=== PATIENT | male | born 1945 | race Caucasian/White ===

== ENCOUNTER → 2016-12-28 | Outpatient (CLI) | payer OTHER ==
[~2016-12-28] VITALS: Ht 157.5 cm; Wt 60.8 kg
[~2016-12-28] MED LIST: ACETAMINOPHEN325 M1 PO; ADVAIR HFA120 INHALA IH; ALBUTEROL2.5 MG/3 M IH; ALMACONE LIQUI355 ML PO; ATENOLOL50 M1 PO; ATROVENT 0.06%15 ML NS; ATROVENT 00.5 MG/2.5 IH; ATROVENT H200 INHALA IH; BISACODYL5 MG PO; COLACE100 MG PO; CORRECTOL5 M1 PO; DAILY MULTIPLE1 EACH PO; DEBROX15 ML BOTH EARS; DELTASONE20 M1 PO; DEPAKOTE ER500 MG PO; DOCUSATE SODIU100 M1 PO; DULCOLAX5 MG PO; DYAZIDE, MA1 CAPSULE PO; EAR WAX DROPS15 ML BOTH EARS; ENEMA READY TO135 M1 PR; FIBER-LAX625 M1 PO; FLOMAX0.4 MG PO; FLONASE16 G1 BOTH NARES; FLONASE16 GM NS; FLORA-Q CAPSUL1 EAC1 PO; FLORA-Q CAPSUL1 EACH PO; FLOVENT 11120 INHALA IH; GAS RELIEF 8080 MG PO; GAS RELIEF80 MG PO; IPRATROPIU0.2 MG/1 M IH; ISOPTIN SR240 M1 PO; K-DUR20 MEQ PO; K-Dur PO; KLOR-CON M2020 MEQ PO; LEVOFLOXACIN500 MG PO; LEVOFLOXACIN750 MG PO; LISINOPRIL10 MG PO; Levaquin PO; MIRALAX17 GM PO; MIRALAX255 GM PO; MUCINEX600 MG PO; MULTIVITAMIN1 EAC1 PO; MYLICON,MYLANTA80 MG PO; OYSCO 500+D TA1 EACH PO; OYSTER CALCIUM PO; OYSTER SHELL 51 EACH PO; OYSTERCAL-D 501 EACH PO; PHENERGAN W/COD10 ML PO; PHENERGAN-CODE120 ML PO; PHENOBARBITAL15 MG PO; PHENOBARBITAL16.2 MG PO; PREDNISONE10 MG PO; PREDNISONE20 MG PO; PREDNISONE5 M2 PO; PREDNISONE5 MG PO; PREPARATION H C51 G1 PR; PROAIR HFA8.5 GM IH; PROVENTIL,2.5 MG/3 M IH; RANITIDINE HCL150 MG PO; SILVASORB1.5 OZ TP; SIMETHICONE80 MG PO; TAMSULOSIN HCL0.4 MG PO; TINACTIN15 GM TP; TRIPLE ANTIB28.35 GM TP; TRIPLE ANTIBIO1 EACH TP; TYLENOL REGULA325 MG PO; VENTOLIN HFA18 GM IH; VERAPAMIL HCL240 MG PO; VERELAN 240 MG240 MG PO; ZANTAC150 M1 PO; ZANTAC150 MG PO; [UNRECOGNIZED DRUG - OTHER] MM; predniSONE PO
== END | disposition home or self-care (01) ==
LOC: AMB 09:00
DX: Z12.11 Encounter for screening for malignant neoplasm of colon (principal); D12.2 Benign neoplasm of ascending colon; K57.30 Diverticulosis of large intestine without perforation or abscess without bleeding; I10 Essential (primary) hypertension; F73 Profound intellectual disabilities; J44.9 Chronic obstructive pulmonary disease, unspecified; K21.0 Gastro-esophageal reflux disease with esophagitis; Z86.14 Personal history of Methicillin resistant Staphylococcus aureus infection; Z87.891 Personal history of nicotine dependence; Z79.899 Other long term (current) drug therapy
CPT/HCPCS: 88305; 93005

== ENCOUNTER 2017-02-12 16:33 | Emergency (ER) | payer OTHER ==
[~2017-02-12] VITALS: Ht 167.6 cm; Wt 61.5 kg
[2017-02-12 17:30] LABS: HEMATOCRIT 41.2 % (38.0-50.0); MCHC 32.8 G/DL (30.0-36.0); MCV 94.5 FL (86-99); MEAN PLAT.VOLUME 9.5 uM^3 (9.0-12.4); PLATELET COUNT 249 K/uL (156-360); RBC DIS.WIDTH-CV 15.5 % (11.8-14.6); RBC DIS.WIDTH-SD 54.1 % (39-53); RED BLOOD COUNT 4.36 M/uL (4.00-5.50); WHITE BLOOD COUNT 7.3 K/uL (4.1-10.2)
[2017-02-12 17:33] LABS: CHLORIDE 97 mEq/L (99-109); POTASSIUM 4.5 mEq/L (3.7-5.4); SODIUM 136 mEq/L (136-147)
[2017-02-12 17:35] LABS: GLUCOSE 99 mg/dL (70-99)
[2017-02-12 17:36] LABS: ANION GAP 9 MEQ/L (2-14)
[2017-02-12 17:37] LABS: D-DIMER ELISA 0.94 mg/L FEU (< 0.57)
[2017-02-12 17:39] LABS: GFR ESTIMATE (CALCULATED) > 59 mL/min/
[2017-02-12 17:40] LABS: UREA NITROGEN (BUN) 14 mg/dL (9-23)
[2017-02-12 17:45] LABS: TROP-I INTERPRETATION NEGATIVE; TROPONIN-I < 0.01 ng/mL (0.0-0.30)
[2017-02-12 20:55] VITALS: BP 171/92
== END 2017-02-12 20:57 | disposition home or self-care (01) ==
LOC: EME 16:33
PROVIDERS: Emergency Medicine
DX: R07.89 Other chest pain (principal); J44.9 Chronic obstructive pulmonary disease, unspecified; Z87.891 Personal history of nicotine dependence
CPT/HCPCS: 71010; 71275; 80048; 84484; 85027; 85379; 93005; 99281; 99284

== ENCOUNTER 2017-04-29 13:46 | Inpatient (IN) | payer OTHER ==
[~2017-04-29] VITALS: Ht 165.1 cm; Wt 58.3 kg
[2017-04-29 14:23] LABS: HEMATOCRIT 40.7 % (38.0-50.0); MCH 31.4 PG (29.0-34.0); MCHC 32.7 G/DL (30.0-36.0); MEAN PLAT.VOLUME 9.2 uM^3 (9.0-12.4); PLATELET COUNT 267 K/uL (156-360); RBC DIS.WIDTH-CV 14.8 % (11.8-14.6); RBC DIS.WIDTH-SD 52.3 % (39-53); RED BLOOD COUNT 4.24 M/uL (4.00-5.50); WHITE BLOOD COUNT 8.5 K/uL (4.1-10.2)
[2017-04-29 14:32] LABS: CHLORIDE 95 mEq/L (99-109); SODIUM 137 mEq/L (136-147)
[2017-04-29 14:34] LABS: GLUCOSE 208 mg/dL (70-99)
[2017-04-29 14:35] LABS: ANION GAP 11 MEQ/L (2-14)
[2017-04-29 14:38] LABS: GFR ESTIMATE (CALCULATED) > 59 mL/min/; UREA NITROGEN (BUN) 17 mg/dL (9-23)
[2017-04-29 14:44] LABS: TROP-I INTERPRETATION NEGATIVE; TROPONIN-I < 0.01 ng/mL (0.0-0.30)
[2017-04-30 04:07] LABS: ADD MIUA? YES; BILIRUBIN NEGATIVE; BLOOD NEGATIVE; COLOR YELLOW ((YELLOW)); GLUCOSE (STRIP) NEGATIVE; KETONES 5; LEUKOCYTES NEGATIVE; NITRITE NEGATIVE; PROTEIN (STRIP) NEGATIVE; SPECIFIC GRAVITY 1.043 (1.000-1.030); UROBILINOGEN 0.2 MG/DL (0.2-1.0)
[2017-04-30 04:57] LABS: BACTERIA 1+ /HPF; CRYSTALS PRESENT; EPITHELIAL CELLS NONE SEEN /HPF; MUCUS NONE SEEN /LPF; RED BLOOD CELLS NONE SEEN /HPF (0-5); UCUL ADDED? NO; WHITE BLOOD CELLS NONE SEEN /HPF (0-5)
[2017-04-30 04:58] LABS: AMORPHOUS URATES CRYSTALS 3+
[2017-04-30 07:38] VITALS: BP 142/70
[2017-04-30 11:25] VITALS: BP 139/65
[2017-04-30 15:57] VITALS: BP 124/65
[2017-04-30 20:00] VITALS: BP 149/76
[2017-05-01 00:53] VITALS: BP 146/81
[2017-05-01 07:25] VITALS: BP 153/74
[2017-05-01 07:44] LABS: Estimated Average Glucose 120 mg/dL (70-123); HEMOGLOBIN A1c (GLYCOHEMOGLOB) 5.8 % HGB (Below 5.7)
[2017-05-01 07:49] LABS: POINT-OF-CARE METER ID UU14174225
[2017-05-01 11:09] VITALS: BP 162/79
[2017-05-01 15:23] VITALS: BP 142/796
[2017-05-01 16:00] VITALS: BP 142/79
[2017-05-01 16:31] LABS: POINT-OF-CARE METER ID UU14174225
[2017-05-01 21:10] VITALS: BP 133/43
[2017-05-02 00:42] VITALS: BP 160/71
[2017-05-02 04:13] VITALS: BP 137/65
[2017-05-02 07:21] VITALS: BP 135/81
[2017-05-02 11:09] VITALS: BP 116/56
[2017-05-02 11:25] LABS: POINT-OF-CARE METER ID UU14174225
[2017-05-02] MEDS ORDERED: CEFTIN500 MG PO (12:17)
== END 2017-05-02 14:30 | disposition home or self-care (01) | DRG 190 ==
LOC: EME 13:46 → 5SOUTH 19:21 → EDOF 19:21 → ENRESERV 19:22 → 5SOUTH 22:37
PROVIDERS: Emergency Medicine; Hospitalist
DX: J44.0 Chronic obstructive pulmonary disease with (acute) lower respiratory infection (principal); J96.21 Acute and chronic respiratory failure with hypoxia; I10 Essential (primary) hypertension; N40.0 Benign prostatic hyperplasia without lower urinary tract symptoms; J44.1 Chronic obstructive pulmonary disease with (acute) exacerbation; K21.9 Gastro-esophageal reflux disease without esophagitis; J20.9 Acute bronchitis, unspecified; Z87.891 Personal history of nicotine dependence; Z99.81 Dependence on supplemental oxygen; J84.10 Pulmonary fibrosis, unspecified; F73 Profound intellectual disabilities; H54.0 Blindness, both eyes; R73.9 Hyperglycemia, unspecified
CPT/HCPCS: 71010; 71275; 80048; 81003; 82948; 83036; 84484; 85027; 85379; 87040; 93005; 94640; 94640 76; 94760; 94799; 99202; 99281; 99284; J0696; J1644; J1815; J2920; J2930; J7050

== ENCOUNTER 2017-12-02 23:37 | Inpatient (IN) | payer OTHER ==
[~2017-12-02] VITALS: Ht 175.3 cm; Wt 58.3 kg
[~2017-12-02 23:37] MED LIST changes: +CEFTIN500 MG PO; +CHLORASEPTIC177 ML MM; +LEVAQUIN500 MG PO; +SENNA-DOCUSATE1 EAC1 PO; -[UNRECOGNIZED DRUG - OTHER] MM
[2017-12-03 00:24] LABS: BASOPHIL (%) 0.3 % (0-1); EOSINOPHIL (%) 0.7 % (0-5); EOSINOPHIL COUNT 0.1 K/uL (0-0.3); HEMATOCRIT 38.4 % (38.0-50.0); IMMATURE GRANULOCYTE (%) 0.3 % (0.0-0.7); LYMPHOCYTE (%) 12.5 % (15-42); LYMPHOCYTE COUNT 1.1 K/uL (1.0-2.8); MCH 32.7 PG (29.0-34.0); MCHC 33.9 G/DL (30.0-36.0); MCV 96.7 FL (86-99); MONOCYTE (%) 17.1 % (3-12); MONOCYTE COUNT 1.5 K/uL (0-0.8); NEUTROPHIL (%) 69.1 % (45-76); NEUTROPHIL COUNT 6.2 K/uL (1.8-6.4); PLATELET COUNT 189 K/uL (156-360); RBC DIS.WIDTH-CV 14.6 % (11.8-14.6); RBC DIS.WIDTH-SD 53.1 % (39-53); RED BLOOD COUNT 3.97 M/uL (4.00-5.50)
[2017-12-03 00:26] LABS: APPEARANCE SL.HAZY ((CLEAR)); BILIRUBIN NEGATIVE; BLOOD NEGATIVE; COLOR YELLOW ((YELLOW)); GLUCOSE (STRIP) NEGATIVE; KETONES 20; LEUKOCYTES NEGATIVE; NITRITE NEGATIVE; PROTEIN (STRIP) 30; UROBILINOGEN 0.2 MG/DL (0.2-1.0)
[2017-12-03 00:34] LABS: ALBUMIN 3.8 g/dL (3.2-4.8); BACTERIA NONE SEEN /HPF; CHLORIDE 98 mEq/L (99-109); EPITHELIAL CELLS NONE SEEN /HPF; MUCUS TRACE /LPF; SODIUM 140 mEq/L (136-147); UCUL ADDED? NO; WHITE BLOOD CELLS 0-5 /HPF (0-5)
[2017-12-03 00:36] LABS: GLUCOSE 97 mg/dL (70-99)
[2017-12-03 00:37] LABS: TOTAL PROTEIN 6.3 g/dL (6.4-8.3)
[2017-12-03 00:38] LABS: TOTAL BILIRUBIN 0.6 mg/dL (0.0-1.0)
[2017-12-03 00:40] LABS: ALKALINE PHOSPHATASE 55 IU/L (3-129); CREATININE 0.9 mg/dL (0.6-1.3); GFR ESTIMATE (CALCULATED) > 59 mL/min/ (58.99-99999)
[2017-12-03 00:41] LABS: UREA NITROGEN (BUN) 26 mg/dL (9-23)
[2017-12-03 00:42] LABS: AST (GOT) 16 IU/L (2-34)
[2017-12-03 00:43] LABS: ALT (GPT) 13 IU/L (3-49)
[2017-12-03 00:46] LABS: TROP-I INTERPRETATION NEGATIVE; TROPONIN-I < 0.01 ng/mL (0.0-0.30)
[2017-12-03] MEDS ORDERED: PREDNISONE10 MG PO (01:11)
[2017-12-03] MEDS ORDERED: MIRALAX17 GM PO (01:16)
[2017-12-03] MEDS ORDERED: PROAIR HFA8.5 GM IH (01:17)
[2017-12-03 05:16] VITALS: BP 128/81
[2017-12-03 08:00] VITALS: BP 131/58
[2017-12-03 12:00] VITALS: BP 110/68
[2017-12-03 18:18] VITALS: BP 103/50
[2017-12-03 20:30] VITALS: BP 109/54
[2017-12-04] VITALS (7 sets, daily range): BP systolic 70–139; BP diastolic 48–65
[2017-12-04 06:00] LABS: BASOPHIL (%) 0.5 % (0-1); EOSINOPHIL (%) 1.7 % (0-5); EOSINOPHIL COUNT 0.1 K/uL (0-0.3); HEMATOCRIT 32.7 % (38.0-50.0); IMMATURE GRANULOCYTE (%) 0.3 % (0.0-0.7); LYMPHOCYTE (%) 20.6 % (15-42); LYMPHOCYTE COUNT 1.2 K/uL (1.0-2.8); MCHC 31.8 G/DL (30.0-36.0); MCV 97.3 FL (86-99); MONOCYTE (%) 14.8 % (3-12); MONOCYTE COUNT 0.9 K/uL (0-0.8); NEUTROPHIL (%) 62.1 % (45-76); NEUTROPHIL COUNT 3.8 K/uL (1.8-6.4); PLATELET COUNT 169 K/uL (156-360); RBC DIS.WIDTH-CV 14.5 % (11.8-14.6); RBC DIS.WIDTH-SD 51.7 % (39-53); RED BLOOD COUNT 3.36 M/uL (4.00-5.50)
[2017-12-04 06:01] LABS: HEMOGLOBIN 10.4 G/DL (12.5-16.6)
[2017-12-04 06:21] LABS: ALBUMIN 2.7 G/DL (3.2-4.8); ALKALINE PHOSPHATASE 32 IU/L (3-129); ALT (GPT) 9 IU/L (3-49); AST (GOT) 11 IU/L (2-34); CHLORIDE 108 MEQ/L (99-109); CREATININE 0.8 MG/DL (0.6-1.3); GFR ESTIMATE (CALCULATED) > 59 mL/min/ (58.99-99999); GLUCOSE 85 mg/dL (70-99); POTASSIUM 3.9 MEQ/L (3.7-5.4); SODIUM 145 MEQ/L (136-147); TOTAL BILIRUBIN 0.4 MG/DL (0.0-1.0); TOTAL PROTEIN 4.7 G/DL (6.4-8.3); UREA NITROGEN (BUN) 24 mg/dL (9-23)
[2017-12-04 17:22] LABS: HEMATOCRIT 32.2 % (38.0-50.0); HEMOGLOBIN 10.5 G/DL (12.5-16.6); MCH 32.4 PG (29.0-34.0); MCHC 32.6 G/DL (30.0-36.0); MCV 99.4 FL (86-99); RBC DIS.WIDTH-CV 14.6 % (11.8-14.6); RBC DIS.WIDTH-SD 53.4 % (39-53); RED BLOOD COUNT 3.24 M/uL (4.00-5.50); WHITE BLOOD COUNT 4.8 K/uL (4.1-10.2)
[2017-12-04 17:58] LABS: CHLORIDE 112 MEQ/L (99-109); CREATININE 0.9 MG/DL (0.6-1.3); GFR ESTIMATE (CALCULATED) > 59 mL/min/ (58.99-99999); GLUCOSE 121 mg/dL (70-99); SODIUM 142 MEQ/L (136-147); UREA NITROGEN (BUN) 24 mg/dL (9-23)
[2017-12-04 18:15] LABS: PLAT.SUFFICIENCY DECREASED
[2017-12-04 18:16] LABS: PLATELET COUNT 108 K/uL (156-360)
[2017-12-05 00:42] VITALS: BP 148/70
[2017-12-05 06:50] LABS: HEMATOCRIT 32.7 % (38.0-50.0); HEMOGLOBIN 10.4 G/DL (12.5-16.6); MCH 31.3 PG (29.0-34.0); MCHC 31.8 G/DL (30.0-36.0); MCV 98.5 FL (86-99); RBC DIS.WIDTH-CV 14.6 % (11.8-14.6); RBC DIS.WIDTH-SD 53.2 % (39-53); RED BLOOD COUNT 3.32 M/uL (4.00-5.50)
[2017-12-05 06:54] LABS: PLATELET COUNT 164 K/uL (156-360)
[2017-12-05 07:18] LABS: CHLORIDE 113 MEQ/L (99-109); CREATININE 0.8 MG/DL (0.6-1.3); GFR ESTIMATE (CALCULATED) > 59 mL/min/ (58.99-99999); POTASSIUM 4.2 MEQ/L (3.7-5.4); SODIUM 147 MEQ/L (136-147); UREA NITROGEN (BUN) 22 mg/dL (9-23)
[2017-12-05 07:19] LABS: GLUCOSE 78 mg/dL (70-99)
[2017-12-05 07:30] VITALS: BP 163/78
[2017-12-05 12:01] VITALS: BP 136/88
[2017-12-05 16:59] VITALS: BP 132/64
[2017-12-05 23:44] VITALS: BP 144/82
[2017-12-06 06:25] LABS: BASOPHIL (%) 0.2 % (0-1); EOSINOPHIL (%) 0 % (0-5); HEMATOCRIT 33.8 % (38.0-50.0); HEMOGLOBIN 11.1 G/DL (12.5-16.6); IMMATURE GRANULOCYTE (%) 0.4 % (0.0-0.7); LYMPHOCYTE (%) 12.9 % (15-42); LYMPHOCYTE COUNT 0.7 K/uL (1.0-2.8); MCH 32.1 PG (29.0-34.0); MCHC 32.8 G/DL (30.0-36.0); MCV 97.7 FL (86-99); MONOCYTE (%) 11.8 % (3-12); MONOCYTE COUNT 0.6 K/uL (0-0.8); NEUTROPHIL (%) 74.7 % (45-76); NEUTROPHIL COUNT 3.9 K/uL (1.8-6.4); RBC DIS.WIDTH-CV 14.3 % (11.8-14.6); RBC DIS.WIDTH-SD 51.4 % (39-53); RED BLOOD COUNT 3.46 M/uL (4.00-5.50); WHITE BLOOD COUNT 5.3 K/uL (4.1-10.2)
[2017-12-06 06:45] VITALS: BP 167/72
[2017-12-06 06:47] LABS: CHLORIDE 107 MEQ/L (99-109); CREATININE 0.7 MG/DL (0.6-1.3); GFR ESTIMATE (CALCULATED) > 59 mL/min/ (58.99-99999); GLUCOSE 94 mg/dL (70-99); POTASSIUM 4.2 MEQ/L (3.7-5.4); SODIUM 144 MEQ/L (136-147); UREA NITROGEN (BUN) 17 mg/dL (9-23)
[2017-12-06 08:06] LABS: PLATELET COUNT 177 K/uL (156-360)
[2017-12-06 15:15] VITALS: BP 147/71
[2017-12-06 23:39] VITALS: BP 176/80
[2017-12-07 06:20] LABS: BASOPHIL (%) 0.2 % (0-1); EOSINOPHIL (%) 0 % (0-5); HEMATOCRIT 35.7 % (38.0-50.0); HEMOGLOBIN 11.6 G/DL (12.5-16.6); IMMATURE GRANULOCYTE (%) 0.6 % (0.0-0.7); LYMPHOCYTE (%) 9.8 % (15-42); LYMPHOCYTE COUNT 0.5 K/uL (1.0-2.8); MCH 31.2 PG (29.0-34.0); MCHC 32.5 G/DL (30.0-36.0); MONOCYTE (%) 8.8 % (3-12); MONOCYTE COUNT 0.5 K/uL (0-0.8); NEUTROPHIL (%) 80.6 % (45-76); NEUTROPHIL COUNT 4.1 K/uL (1.8-6.4); PLATELET COUNT 208 K/uL (156-360); RBC DIS.WIDTH-CV 13.9 % (11.8-14.6); RBC DIS.WIDTH-SD 49.8 % (39-53); RED BLOOD COUNT 3.72 M/uL (4.00-5.50); WHITE BLOOD COUNT 5.1 K/uL (4.1-10.2)
[2017-12-07 06:45] LABS: CHLORIDE 101 MEQ/L (99-109); CREATININE 0.8 MG/DL (0.6-1.3); GFR ESTIMATE (CALCULATED) > 59 mL/min/ (58.99-99999); GLUCOSE 108 mg/dL (70-99); POTASSIUM 4.3 MEQ/L (3.7-5.4); SODIUM 141 MEQ/L (136-147); UREA NITROGEN (BUN) 15 mg/dL (9-23)
[2017-12-07 07:15] VITALS: BP 169/80
[2017-12-07] MEDS ORDERED: MEDROL DOSEPAK4 MG PO (09:34)
[2017-12-07] MEDS ORDERED: AMOX TR-K CLV1 EAC4 PO (09:34)
[2017-12-07 16:14] VITALS: BP 136/76
== END 2017-12-07 16:34 | disposition home or self-care (01) | DRG 178 ==
LOC: EME → EDBD 23:37 → EME 23:37 → 5EAST 12-03 02:37 → EDOF 12-03 02:37 → ENRESERV 12-03 02:39 → 5EAST 12-03 04:23 → ENPENDDIS 12-07 → 5EAST 12-07 16:34
PROVIDERS: Emergency Medicine; Internal Medicine; Physician Assistant; Student in an Organized Health Care Education/Training Program
DX: J69.0 Pneumonitis due to inhalation of food and vomit (principal); R13.19 Other dysphagia; J84.10 Pulmonary fibrosis, unspecified; J44.1 Chronic obstructive pulmonary disease with (acute) exacerbation; Z99.81 Dependence on supplemental oxygen; I95.9 Hypotension, unspecified; E86.0 Dehydration; R41.82 Altered mental status, unspecified; E11.9 Type 2 diabetes mellitus without complications; F79 Unspecified intellectual disabilities; H54.7 Unspecified visual loss; I10 Essential (primary) hypertension; K21.9 Gastro-esophageal reflux disease without esophagitis; R25.1 Tremor, unspecified; F41.9 Anxiety disorder, unspecified; Y95 Nosocomial condition; Z87.891 Personal history of nicotine dependence
CPT/HCPCS: 71045; 71275; 74018; 80048; 80048 91; 80053; 80202; 81003; 83605; 83880; 84145 90; 84484; 85025; 85027; 85379; 87040; 87449; 87502; 92610 GN; 93005; 94640; 94640 76; 94799; 99202; 99281; 99285; J1650; J2543; J2920; J3370; J7030; J7050; J7512

== ENCOUNTER 2017-12-27 20:14 | Inpatient (IN) | payer OTHER ==
[~2017-12-27] VITALS: Ht 160 cm; Wt 55.0 kg
[~2017-12-27 20:14] MED LIST changes: +AMOX TR-K CLV1 EAC4 PO; +MEDROL DOSEPAK4 MG PO
[2017-12-27 21:01] LABS: CARBON DIOXIDE (BICARBONATE) 39.2 MEQ/L (20-31); HEMATOCRIT 36.7 % (38.0-50.0); HEMOGLOBIN 12.2 G/DL (12.5-16.6); MCH 32.4 PG (29.0-34.0); MCHC 33.2 G/DL (30.0-36.0); MCV 97.3 FL (86-99); RBC DIS.WIDTH-SD 49.5 % (39-53); RED BLOOD COUNT 3.77 M/uL (4.00-5.50); WHITE BLOOD COUNT 6.8 K/uL (4.1-10.2)
[2017-12-27 21:04] LABS: PLATELET COUNT 340 K/uL (156-360)
[2017-12-27 21:26] LABS: TROP-I INTERPRETATION NEGATIVE; TROPONIN-I < 0.01 ng/mL (0.0-0.30)
[2017-12-27 21:51] LABS: CHLORIDE 98 mEq/L (99-109); POTASSIUM 4.9 mEq/L (3.7-5.4); SODIUM 142 mEq/L (136-147)
[2017-12-27 21:53] LABS: GLUCOSE 114 mg/dL (70-99)
[2017-12-27 21:57] LABS: CREATININE 0.8 mg/dL (0.6-1.3); GFR ESTIMATE (CALCULATED) > 59 mL/min/ (58.99-99999); UREA NITROGEN (BUN) 23 mg/dL (9-23)
[2017-12-28] MEDS ORDERED: THEOPHYLLINE400 MG PO (00:13)
[2017-12-28] MEDS ORDERED: PREDNISONE5 MG PO (00:13)
[2017-12-28 03:10] VITALS: BP 166/73
[2017-12-28 07:54] VITALS: BP 117/80
[2017-12-28 10:48] LABS: BASE EXCESS 7.6 mEq/L (-3 to +3); BICARBONATE 32.7 mEq/L (22-26); CARBOXY HGB 2.1 % (0-5); METHEMOGLOBIN 1.5 % (0-1.5); PO2 64 mm Hg (80-100); pH 7.45 (7.35-7.45)
[2017-12-28 10:49] LABS: COMMENTS - BLOOD GASES A+C+; DEVICE NASCAN; O2 FLOW 4 L/MIN; PCO2 47 mm Hg (35-45); SITE LEFTRAD; TOTAL RESP RATE 28 resp/min
[2017-12-28 12:13] VITALS: BP 99/54
[2017-12-28 23:42] VITALS: BP 117/56
[2017-12-29 04:08] VITALS: BP 110/56; BP 125/66
[2017-12-29 08:04] VITALS: BP 127/67
[2017-12-29 10:14] LABS: HEMOGLOBIN 10.4 G/DL (12.5-16.6); MCH 31.8 PG (29.0-34.0); MCHC 32.5 G/DL (30.0-36.0); MCV 97.9 FL (86-99); NRBC (%) 0.6 /100 WBC (0-0); PLATELET COUNT 277 K/uL (156-360); RBC DIS.WIDTH-CV 13.8 % (11.8-14.6); RBC DIS.WIDTH-SD 49.1 % (39-53); RED BLOOD COUNT 3.27 M/uL (4.00-5.50); WHITE BLOOD COUNT 5.1 K/uL (4.1-10.2)
[2017-12-29 10:46] LABS: CHLORIDE 102 MEQ/L (99-109); CREATININE 0.7 MG/DL (0.6-1.3); GFR ESTIMATE (CALCULATED) > 59 mL/min/ (58.99-99999); GLUCOSE 106 mg/dL (70-99); SODIUM 138 MEQ/L (136-147); UREA NITROGEN (BUN) 16 mg/dL (9-23)
[2017-12-29 10:57] LABS: POTASSIUM 3.8 MEQ/L (3.7-5.4)
[2017-12-29 11:43] VITALS: BP 117/64
[2017-12-29 16:56] VITALS: BP 99/54
[2017-12-29 19:58] VITALS: BP 140/69
[2017-12-29 23:36] VITALS: BP 158/80
[2017-12-30 03:46] VITALS: BP 127/68
[2017-12-30 07:40] VITALS: BP 120/71
[2017-12-30 11:10] VITALS: BP 124/74
[2017-12-30] MEDS ORDERED: LEVAQUIN750 MG PO (13:28)
[2017-12-30] MEDS ORDERED: PREDNISONE10 MG PO ×2 (13:28→14:13)
== END 2017-12-30 15:48 | disposition home or self-care (01) | DRG 190 ==
LOC: EME → EDBD 20:14 → 5EAST 12-28 01:48 → EDOF 12-28 01:48 → ENRESERV 12-28 01:53 → 5EAST 12-28 02:52
PROVIDERS: Emergency Medicine; Internal Medicine
DX: J44.1 Chronic obstructive pulmonary disease with (acute) exacerbation (principal); J96.21 Acute and chronic respiratory failure with hypoxia; J44.0 Chronic obstructive pulmonary disease with (acute) lower respiratory infection; J20.9 Acute bronchitis, unspecified; Z66 Do not resuscitate; E11.9 Type 2 diabetes mellitus without complications; F79 Unspecified intellectual disabilities; H54.8 Legal blindness, as defined in USA; I10 Essential (primary) hypertension; K21.9 Gastro-esophageal reflux disease without esophagitis; R29.6 Repeated falls; Z87.891 Personal history of nicotine dependence; Z99.81 Dependence on supplemental oxygen
CPT/HCPCS: 36600; 71045; 74018; 80048; 82803; 84484; 85027; 85379; 87502; 94640; 94640 76; 94760; 94799; 99202; 99281; 99285; J1644; J1956; J3010; J3475; J7030; J7512

== ENCOUNTER 2018-03-13 11:56 | Inpatient (IN) | payer OTHER ==
[~2018-03-13] VITALS: Ht 157.5 cm; Wt 56.2 kg
[~2018-03-13 11:56] MED LIST changes: +LEVAQUIN750 MG PO; +THEOPHYLLINE400 MG PO
[2018-03-13 13:59] LABS: TROP-I INTERPRETATION NEGATIVE; TROPONIN-I 0.02 ng/mL (0.0-0.30)
[2018-03-13 14:27] LABS: HEMATOCRIT 34.4 % (38.0-50.0); HEMOGLOBIN 11.4 G/DL (12.5-16.6); MCH 32.2 PG (29.0-34.0); MCHC 33.1 G/DL (30.0-36.0); MCV 97.2 FL (86-99); RBC DIS.WIDTH-CV 16.1 % (11.8-14.6); RBC DIS.WIDTH-SD 57.4 % (39-53); RED BLOOD COUNT 3.54 M/uL (4.00-5.50); WHITE BLOOD COUNT 2.8 K/uL (4.1-10.2)
[2018-03-13 14:33] LABS: CHLORIDE 106 mEq/L (99-109); POTASSIUM 4.6 mEq/L (3.7-5.4); SODIUM 146 mEq/L (136-147)
[2018-03-13 14:36] LABS: GLUCOSE 77 mg/dL (70-99); TOTAL PROTEIN 4.9 g/dL (6.4-8.3)
[2018-03-13 14:38] LABS: TOTAL BILIRUBIN 0.5 mg/dL (0.0-1.0)
[2018-03-13 14:39] LABS: ALKALINE PHOSPHATASE 42 IU/L (3-129); CREATININE 1.5 mg/dL (0.6-1.3); GFR ESTIMATE (CALCULATED) 49 mL/min/ (58.99-99999)
[2018-03-13 14:40] LABS: UREA NITROGEN (BUN) 26 mg/dL (9-23)
[2018-03-13 14:41] LABS: AST (GOT) 27 IU/L (2-34)
[2018-03-13 14:42] LABS: ALT (GPT) 12 IU/L (3-49)
[2018-03-13 15:37] LABS: ANISOCYTOSIS 1+; BAND NEUTROPHILS 32.1 % (0-8.0); BASOPHILS 0.9 %; EOSINOPHIL ABS CT 0; LYMPHOCYTES 12.8 % (15.0-45.0); MACROCYTES 1+; METAMYELOCYTES 29.4 %; MONOCYTES 11.9 % (0-9.0); MYELOCYTES 10.1 %; OVALOCYTES 1+; PLAT.SUFFICIENCY ADEQUATE; PLATELET COUNT 204 K/uL (156-360); SEG.NEUTROPHILS 2.8 % (46.0-76.0)
[2018-03-13 17:15] LABS: APPEARANCE CLEAR ((CLEAR)); BILIRUBIN NEGATIVE; BLOOD MODERATE; COLOR YELLOW ((YELLOW)); GLUCOSE (STRIP) NEGATIVE; KETONES 5; LEUKOCYTES NEGATIVE; NITRITE NEGATIVE; PROTEIN (STRIP) 30; SPECIFIC GRAVITY 1.019 (1.000-1.030); UROBILINOGEN 0.2 MG/DL (0.2-1.0)
[2018-03-13] MEDS ORDERED: FLORA-Q CAPSUL1 EACH PO (17:19)
[2018-03-13 17:25] LABS: BACTERIA NONE SEEN /HPF; EPITHELIAL CELLS RARE /HPF; MUCUS TRACE /LPF; RED BLOOD CELLS 0-5 /HPF (0-5); UCUL ADDED? NO; WHITE BLOOD CELLS 0-5 /HPF (0-5)
[2018-03-13] MEDS ORDERED: [UNRECOGNIZED DRUG - OTHER] PO (17:25)
[2018-03-13 17:49] VITALS: BP 132/62
[2018-03-13 17:53] VITALS: BP 132/62
[2018-03-13 19:40] VITALS: BP 148/68
[2018-03-14 01:02] VITALS: BP 114/58
[2018-03-14 03:13] VITALS: BP 119/69
[2018-03-14 05:46] LABS: HEMOGLOBIN 12.6 G/DL (12.5-16.6); MCH 31.2 PG (29.0-34.0); MCHC 32.3 G/DL (30.0-36.0); MCV 96.5 FL (86-99); PLATELET COUNT 204 K/uL (156-360); RBC DIS.WIDTH-CV 15.9 % (11.8-14.6); RBC DIS.WIDTH-SD 57.1 % (39-53); RED BLOOD COUNT 4.04 M/uL (4.00-5.50); WHITE BLOOD COUNT 6.7 K/uL (4.1-10.2)
[2018-03-14 06:11] LABS: CHLORIDE 107 MEQ/L (99-109); GFR ESTIMATE (CALCULATED) > 59 mL/min/ (58.99-99999); GLUCOSE 88 mg/dL (70-99); POTASSIUM 4.7 MEQ/L (3.7-5.4); SODIUM 147 MEQ/L (136-147); UREA NITROGEN (BUN) 25 mg/dL (9-23)
[2018-03-14 09:06] VITALS: BP 140/64
[2018-03-14 12:26] VITALS: BP 128/81
[2018-03-14 17:02] VITALS: BP 126/63
[2018-03-14 19:45] VITALS: BP 100/57
[2018-03-15] VITALS (10 sets, daily range): BP systolic 93–123; BP diastolic 46–78
[2018-03-15 10:22] LABS: HEMATOCRIT 44.2 % (38.0-50.0); HEMOGLOBIN 14.9 G/DL (12.5-16.6); MCHC 33.7 G/DL (30.0-36.0); MCV 94.8 FL (86-99); PLATELET COUNT 220 K/uL (156-360); RBC DIS.WIDTH-CV 16.5 % (11.8-14.6); RED BLOOD COUNT 4.66 M/uL (4.00-5.50); WHITE BLOOD COUNT 13.8 K/uL (4.1-10.2)
[2018-03-15 10:26] LABS: CHLORIDE 107 mEq/L (99-109); POTASSIUM 4.3 mEq/L (3.7-5.4); SODIUM 147 mEq/L (136-147)
[2018-03-15 10:27] LABS: MAGNESIUM 2.6 mg/dL (1.3-2.7)
[2018-03-15 10:32] LABS: CREATININE 1.1 mg/dL (0.6-1.3); GFR ESTIMATE (CALCULATED) > 59 mL/min/ (58.99-99999)
[2018-03-15 10:38] LABS: GLUCOSE 196 mg/dL (70-99); TROP-I INTERPRETATION NEGATIVE; TROPONIN-I < 0.01 ng/mL (0.0-0.30)
[2018-03-15 10:39] LABS: UREA NITROGEN (BUN) 38 mg/dL (9-23)
[2018-03-16 04:41] VITALS: BP 91/53
[2018-03-16 06:21] LABS: HEMATOCRIT 33.5 % (38.0-50.0); MCH 31.2 PG (29.0-34.0); MCHC 33.1 G/DL (30.0-36.0); MCV 94.1 FL (86-99); PLATELET COUNT 201 K/uL (156-360); RBC DIS.WIDTH-CV 16.5 % (11.8-14.6); RBC DIS.WIDTH-SD 57.6 % (39-53); WHITE BLOOD COUNT 12.3 K/uL (4.1-10.2)
[2018-03-16 06:24] LABS: HEMOGLOBIN 11.1 G/DL (12.5-16.6); RED BLOOD COUNT 3.56 M/uL (4.00-5.50)
[2018-03-16 06:26] LABS: CHLORIDE 111 MEQ/L (99-109); CREATININE 0.9 MG/DL (0.6-1.3); GFR ESTIMATE (CALCULATED) > 59 mL/min/ (58.99-99999); GLUCOSE 136 mg/dL (70-99); POTASSIUM 4.7 MEQ/L (3.7-5.4); SODIUM 147 MEQ/L (136-147); UREA NITROGEN (BUN) 43 mg/dL (9-23)
[2018-03-16 07:01] LABS: ABS NEUTROPHIL COUNT 11.5; ANISOCYTOSIS 1+; BAND NEUTROPHILS 30.4 % (0-8.0); EOSINOPHIL ABS CT 0; LYMPHOCYTES 3.5 % (15.0-45.0); MACROCYTES 1+; MONOCYTES 2.6 % (0-9.0); PLAT.SUFFICIENCY ADEQUATE
[2018-03-16 07:02] LABS: SEG.NEUTROPHILS 63.5 % (46.0-76.0)
[2018-03-16 08:22] VITALS: BP 145/81; BP 29/63
[2018-03-16 13:10] VITALS: BP 145/81
[2018-03-16 15:24] VITALS: BP 114/69
[2018-03-16 19:16] VITALS: BP 146/62
[2018-03-16 23:49] VITALS: BP 183/78
[2018-03-17 04:08] VITALS: BP 168/73
[2018-03-17 05:39] LABS: INTER. NORMALIZED RATIO 1.1
[2018-03-17 05:41] LABS: PTT 26.1 SEC (25-37)
[2018-03-17 07:28] VITALS: BP 117/74
[2018-03-17 12:01] LABS: TYPE OF FLUID PLEURAL
[2018-03-17 12:05] VITALS: BP 170/79
[2018-03-17 13:09] LABS: BODY FLUID GLUCOSE 213 MG/DL; BODY FLUID LDH 151 IU/L
[2018-03-17 13:18] LABS: BODY FLUID PROTEIN < 3.0 G/DL
[2018-03-17 13:42] LABS: GLUCOSE 146 mg/dL (70-99); TOTAL PROTEIN 6.3 G/DL (6.4-8.3)
[2018-03-17 13:48] LABS: APPEARANCE SLIGHTLY CLOUDY; BODY FLUID EOSINOPHILS 0 % (0-25); BODY FLUID RBC'S 2000 /MM^3 (0-100); BODY FLUID WBC'S 9592 /MM^3 (0-500); MONONUCLEAR WBC'S 7 %; POLYNUCLEAR WBC'S 93 % (0-25)
[2018-03-17 14:59] LABS: LACTATE DEHYDROGENASE 236 IU/L (20-246)
[2018-03-17 15:35] VITALS: BP 151/67
[2018-03-17 20:00] VITALS: BP 157/72
[2018-03-18] VITALS (7 sets, daily range): BP systolic 144–161; BP diastolic 66–97
[2018-03-18 09:37] LABS: HEMATOCRIT 44.9 % (38.0-50.0); MCH 30.9 PG (29.0-34.0); MCHC 32.3 G/DL (30.0-36.0); MCV 95.5 FL (86-99); PLATELET COUNT 232 K/uL (156-360); RBC DIS.WIDTH-CV 17.1 % (11.8-14.6); RBC DIS.WIDTH-SD 60.3 % (39-53); WHITE BLOOD COUNT 8.7 K/uL (4.1-10.2)
[2018-03-18 09:38] LABS: HEMOGLOBIN 14.5 G/DL (12.5-16.6)
[2018-03-18 10:01] LABS: CHLORIDE 113 MEQ/L (99-109); CREATININE 0.7 MG/DL (0.6-1.3); GFR ESTIMATE (CALCULATED) > 59 mL/min/ (58.99-99999); GLUCOSE 189 mg/dL (70-99); POTASSIUM 4.3 MEQ/L (3.7-5.4); UREA NITROGEN (BUN) 43 mg/dL (9-23)
[2018-03-18 10:04] LABS: SODIUM 155 MEQ/L (136-147)
[2018-03-18 16:42] LABS: THYROTROPIN (TSH) 0.36 MIU/L (0.4-5.5)
[2018-03-19 03:50] VITALS: BP 110/56
[2018-03-19 05:49] LABS: HEMATOCRIT 44.5 % (38.0-50.0); MCH 30.4 PG (29.0-34.0); MCHC 31.5 G/DL (30.0-36.0); MCV 96.7 FL (86-99); PLATELET COUNT 211 K/uL (156-360); RBC DIS.WIDTH-CV 17.2 % (11.8-14.6); RBC DIS.WIDTH-SD 61.1 % (39-53); WHITE BLOOD COUNT 9.7 K/uL (4.1-10.2)
[2018-03-19 06:22] LABS: CHLORIDE 109 MEQ/L (99-109); CREATININE 0.9 MG/DL (0.6-1.3); GFR ESTIMATE (CALCULATED) > 59 mL/min/ (58.99-99999); MAGNESIUM 1.9 mg/dl (1.3-2.7); POTASSIUM 3.6 MEQ/L (3.7-5.4); SODIUM 159 MEQ/L (136-147); UREA NITROGEN (BUN) 30 mg/dL (9-23)
[2018-03-19 06:42] LABS: GLUCOSE 107 mg/dL (70-99)
[2018-03-19 08:13] VITALS: BP 147/59
[2018-03-19 11:45] VITALS: BP 90/52
[2018-03-19 14:45] VITALS: BP 123/63
[2018-03-19 21:00] VITALS: BP 132/80
[2018-03-20 01:24] VITALS: BP 102/52
[2018-03-20 05:26] LABS: HEMATOCRIT 40.5 % (38.0-50.0); HEMOGLOBIN 12.7 G/DL (12.5-16.6); MCH 30.8 PG (29.0-34.0); MCHC 31.4 G/DL (30.0-36.0); MCV 98.1 FL (86-99); PLATELET COUNT 192 K/uL (156-360); RBC DIS.WIDTH-CV 16.7 % (11.8-14.6); RBC DIS.WIDTH-SD 61.2 % (39-53); RED BLOOD COUNT 4.13 M/uL (4.00-5.50); WHITE BLOOD COUNT 9.7 K/uL (4.1-10.2)
[2018-03-20 06:19] LABS: CHLORIDE 103 MEQ/L (99-109); CREATININE 0.6 MG/DL (0.6-1.3); GFR ESTIMATE (CALCULATED) > 59 mL/min/ (58.99-99999); UREA NITROGEN (BUN) 26 mg/dL (9-23)
[2018-03-20 06:22] LABS: GLUCOSE 166 mg/dL (70-99); POTASSIUM 4.4 MEQ/L (3.7-5.4); SODIUM 148 MEQ/L (136-147)
[2018-03-20 09:45] VITALS: BP 118/73
[2018-03-20 12:30] VITALS: BP 112/70
[2018-03-20 17:30] VITALS: BP 121/78
[2018-03-20 19:41] VITALS: BP 154/69
[2018-03-20 23:36] VITALS: BP 140/63
[2018-03-21 04:36] VITALS: BP 138/60
[2018-03-21 06:47] LABS: HEMATOCRIT 35.7 % (38.0-50.0); HEMOGLOBIN 11.4 G/DL (12.5-16.6); MCHC 31.9 G/DL (30.0-36.0); RBC DIS.WIDTH-CV 16.6 % (11.8-14.6); RBC DIS.WIDTH-SD 59.7 % (39-53); RED BLOOD COUNT 3.68 M/uL (4.00-5.50); WHITE BLOOD COUNT 13.3 K/uL (4.1-10.2)
[2018-03-21 07:13] LABS: CHLORIDE 105 MEQ/L (99-109); CREATININE 0.6 MG/DL (0.6-1.3); GFR ESTIMATE (CALCULATED) > 59 mL/min/ (58.99-99999); GLUCOSE 165 mg/dL (70-99); POTASSIUM 5.1 MEQ/L (3.7-5.4); SODIUM 146 MEQ/L (136-147); UREA NITROGEN (BUN) 31 mg/dL (9-23)
[2018-03-21 07:16] LABS: BASOPHIL (%) 0.5 % (0-1); BASOPHIL COUNT 0.1 K/uL (0-0.1); EOSINOPHIL (%) 0 % (0-5); LYMPHOCYTE (%) 3.5 % (15-42); LYMPHOCYTE COUNT 0.5 K/uL (1.0-2.8); MONOCYTE (%) 2.9 % (3-12); MONOCYTE COUNT 0.4 K/uL (0-0.8); NEUTROPHIL (%) 90.1 % (45-76); PLATELET COUNT 174 K/uL (156-360)
[2018-03-21 09:00] VITALS: BP 112/56
[2018-03-21 16:00] VITALS: BP 118/76
[2018-03-21 20:55] VITALS: BP 155/68
[2018-03-21 23:08] VITALS: BP 152/68
[2018-03-22 03:45] VITALS: BP 164/78
[2018-03-22 06:17] LABS: BASOPHIL (%) 0.2 % (0-1); EOSINOPHIL (%) 0 % (0-5); HEMATOCRIT 43.6 % (38.0-50.0); IMMATURE GRANULOCYTE (%) 1.9 % (0.0-0.7); LYMPHOCYTE (%) 2.4 % (15-42); LYMPHOCYTE COUNT 0.4 K/uL (1.0-2.8); MCH 30.7 PG (29.0-34.0); MCHC 31.7 G/DL (30.0-36.0); MCV 96.9 FL (86-99); MONOCYTE (%) 2.2 % (3-12); MONOCYTE COUNT 0.4 K/uL (0-0.8); NEUTROPHIL (%) 93.3 % (45-76); NEUTROPHIL COUNT 14.6 K/uL (1.8-6.4); RBC DIS.WIDTH-CV 16.5 % (11.8-14.6); RBC DIS.WIDTH-SD 59.2 % (39-53); WHITE BLOOD COUNT 15.7 K/uL (4.1-10.2)
[2018-03-22 06:18] LABS: HEMOGLOBIN 13.8 G/DL (12.5-16.6); PLATELET COUNT 281 K/uL (156-360)
[2018-03-22 07:17] LABS: ALBUMIN 2.8 G/DL (3.2-4.8); CHLORIDE 103 MEQ/L (99-109); SODIUM 146 MEQ/L (136-147); TOTAL BILIRUBIN 0.4 MG/DL (0.0-1.0)
[2018-03-22 07:29] LABS: ALKALINE PHOSPHATASE 75 IU/L (3-129); ALT (GPT) 16 IU/L (3-49); AST (GOT) 17 IU/L (2-34); CREATININE 0.6 MG/DL (0.6-1.3); GFR ESTIMATE (CALCULATED) > 59 mL/min/ (58.99-99999); GLUCOSE 162 mg/dL (70-99); UREA NITROGEN (BUN) 32 mg/dL (9-23)
[2018-03-22 07:32] LABS: TOTAL PROTEIN 5.3 G/DL (6.4-8.3)
[2018-03-22 08:40] VITALS: BP 149/70
[2018-03-22 09:55] LABS: COMMENTS - BLOOD GASES NAC+; DEVICE HFNC; O2 FLOW 15 L/MIN; SITE LR; TOTAL RESP RATE 24 resp/min
[2018-03-22 09:58] LABS: BASE EXCESS 9.6 mEq/L (-3 to +3); PCO2 54 mm Hg (35-45); PO2 57 mm Hg (80-100); pH 7.43 (7.35-7.45)
[2018-03-22 09:59] LABS: BICARBONATE 35.8 mEq/L (22-26)
[2018-03-22 10:16] LABS: HEMOGLOBIN A1c (GLYCOHEMOGLOB) 5.7 % (Below 5.7)
[2018-03-22 11:22] VITALS: BP 150/67
[2018-03-22 16:08] VITALS: BP 130/59
[2018-03-22 18:57] VITALS: BP 141/62
[2018-03-23 00:04] VITALS: BP 157/72
[2018-03-23 04:15] VITALS: BP 166/74
[2018-03-23 05:37] LABS: BASOPHIL (%) 0.1 % (0-1); EOSINOPHIL (%) 0 % (0-5); HEMOGLOBIN 12.2 G/DL (12.5-16.6); IMMATURE GRANULOCYTE (%) 1.4 % (0.0-0.7); LYMPHOCYTE (%) 1.5 % (15-42); LYMPHOCYTE COUNT 0.2 K/uL (1.0-2.8); MCH 31.1 PG (29.0-34.0); MCV 94.4 FL (86-99); MONOCYTE (%) 1.6 % (3-12); MONOCYTE COUNT 0.2 K/uL (0-0.8); NEUTROPHIL (%) 95.4 % (45-76); NEUTROPHIL COUNT 14.3 K/uL (1.8-6.4); PLATELET COUNT 246 K/uL (156-360); RBC DIS.WIDTH-CV 16.4 % (11.8-14.6); RBC DIS.WIDTH-SD 56.5 % (39-53); RED BLOOD COUNT 3.92 M/uL (4.00-5.50)
[2018-03-23 07:25] VITALS: BP 155/88
[2018-03-23 08:49] LABS: CHLORIDE 96 MEQ/L (99-109); CREATININE 0.7 MG/DL (0.6-1.3); GFR ESTIMATE (CALCULATED) > 59 mL/min/ (58.99-99999); GLUCOSE 164 mg/dL (70-99); POTASSIUM 4.5 MEQ/L (3.7-5.4); SODIUM 144 MEQ/L (136-147); UREA NITROGEN (BUN) 26 mg/dL (9-23)
[2018-03-23 08:50] LABS: CARBON DIOXIDE (BICARBONATE) > 40.0 MEQ/L (20-31)
[2018-03-23 11:44] VITALS: BP 139/67
[2018-03-23 14:35] VITALS: BP 140/77
[2018-03-23] MEDS ORDERED: METOLAZONE2.5 MG PO (16:56)
== END 2018-03-23 17:51 | DRG 871 ==
LOC: EME 11:56 → EDOF 15:58 → 4EAST 15:58 → ENRESERV 16:02 → 4EAST 17:38 → ENRESERV 03-23 17:27 → 4EAST 03-23 17:51
PROVIDERS: Emergency Medicine; Hospitalist; Internal Medicine; Internal Medicine Nephrology; Internal Medicine Pulmonary Disease; Student in an Organized Health Care Education/Training Program
PROC: 0W9B3ZZ Drainage of Left Pleural Cavity, Percutaneous Approach (ICD-10-PCS; principal; 2018-03-17)
DX: A41.9 Sepsis, unspecified organism (principal); Z66 Do not resuscitate; Z51.5 Encounter for palliative care; J69.0 Pneumonitis due to inhalation of food and vomit; J96.21 Acute and chronic respiratory failure with hypoxia; R65.20 Severe sepsis without septic shock; J91.8 Pleural effusion in other conditions classified elsewhere; J44.1 Chronic obstructive pulmonary disease with (acute) exacerbation; J84.10 Pulmonary fibrosis, unspecified; J93.83 Other pneumothorax; E87.2 Acidosis; E11.65 Type 2 diabetes mellitus with hyperglycemia; E87.6 Hypokalemia; E87.0 Hyperosmolality and hypernatremia; I48.0 Paroxysmal atrial fibrillation; J98.11 Atelectasis; H54.8 Legal blindness, as defined in USA; F72 Severe intellectual disabilities; K21.9 Gastro-esophageal reflux disease without esophagitis; R32 Unspecified urinary incontinence; I10 Essential (primary) hypertension; F41.9 Anxiety disorder, unspecified; R13.10 Dysphagia, unspecified; E87.1 Hypo-osmolality and hyponatremia; I95.9 Hypotension, unspecified; Z99.81 Dependence on supplemental oxygen; Z87.891 Personal history of nicotine dependence; Z79.899 Other long term (current) drug therapy
CPT/HCPCS: 36600; 71045; 71250; 74176; 74230; 76942; 80048; 80053; 80202; 81003; 82533 91; 82945; 82947; 82948; 83036; 83605; 83615; 83615 91; 83735; 83930; 83935; 84155; 84157; 84300; 84439; 84443; 84484; 85025; 85027; 85610; 85730; 87040; 87070; 87205; 87641; 89051; 92610 GN; 92611 GN; 93005; 93306; 93971; 94640; 94669; 94760; 94799; 97530 GP; 99281; 99285; C1753; J0692; J1644; J1650; J1815; J2543; J2930; J3370; J3480; J7040; J7050; J7070; J7120

== ENCOUNTER 2018-03-23 16:45 | Inpatient (IN) | payer OTHER ==
[~2018-03-23 16:45] MED LIST changes: +[UNRECOGNIZED DRUG - OTHER] PO
[2018-03-23] MEDS ORDERED: METOLAZONE2.5 MG PO (16:56)
== END 2018-03-24 15:02 | disposition hospice, home (50) | DRG 189 ==
LOC: 4EAST 16:45 → 5EAST 16:45 → 4EAST 17:37 → ENRESERV 19:28 → 5EAST 21:48
DX: J96.21 Acute and chronic respiratory failure with hypoxia (principal); A41.9 Sepsis, unspecified organism; J69.0 Pneumonitis due to inhalation of food and vomit; E87.0 Hyperosmolality and hypernatremia; J90 Pleural effusion, not elsewhere classified; Z51.5 Encounter for palliative care; Z66 Do not resuscitate; J44.9 Chronic obstructive pulmonary disease, unspecified; H54.8 Legal blindness, as defined in USA; E11.9 Type 2 diabetes mellitus without complications; F79 Unspecified intellectual disabilities; I10 Essential (primary) hypertension; K21.9 Gastro-esophageal reflux disease without esophagitis; R13.10 Dysphagia, unspecified; Z99.81 Dependence on supplemental oxygen; Z88.6 Allergy status to analgesic agent; Z79.51 Long term (current) use of inhaled steroids; Z79.01 Long term (current) use of anticoagulants; Z79.52 Long term (current) use of systemic steroids
CPT/HCPCS: 94760; 94799; J2060; J2270